=== PATIENT | male | born 1965 | race Caucasian/White ===

== ENCOUNTER → 2021-10-24 | Outpatient (REF) | payer OTHER | LOC: M LAB REF 14:21 | PROVIDERS: ATTEND Physician Assistant | DX: C44.529 Squamous cell carcinoma of skin of other part of trunk (principal) ==

== ENCOUNTER 2024-01-24 06:47 | Day surgery (SDC) | payer OTHER ==
[~2024-01-24] VITALS: Ht 177.8 cm; Wt 97.6 kg
[~2024-01-24 06:47] MED LIST: AMLO1TAB24 PO; LISI10TA22; OLME20TA50 PO; OMEP-173 PO
[2024-01-24] MEDS ORDERED: propofoL 200 MG/20 ML VIAL As Ordered ONE (07:09)
[2024-01-24] MEDS ORDERED: fentaNYL 100 MCG/2 ML INJECTION As Ordered ONE (07:09)
[2024-01-24] MEDS: NS 1,000 ML IV ONE (07:16)
[2024-01-24 08:07] VITALS: TEMP 98
[2024-01-24 08:22] VITALS: BP 119/74; O2SAT 96
== END 2024-01-24 08:31 | disposition home or self-care (01) ==
LOC: M OPP 06:47
PROVIDERS: ATTEND Internal Medicine Gastroenterology
DX: Z12.11 Encounter for screening for malignant neoplasm of colon (principal); K64.0 First degree hemorrhoids; K22.89 Other specified disease of esophagus; R12 Heartburn; Z79.84 Long term (current) use of oral hypoglycemic drugs; Z79.899 Other long term (current) drug therapy
CPT/HCPCS: 43239; 45378; 88305; J3010

== ENCOUNTER 2024-03-03 07:19 | Day surgery (SDC) | payer OTHER ==
[~2024-03-03] VITALS: Ht 175.3 cm; Wt 97.1 kg
[~2024-03-03 07:19] MED LIST changes: +LIDOCAINE 1% SDV 5ML VIAL SC PRN; +LR 1,000 ML IV SCH; +MOME17SP NS
[2024-03-03] MEDS ORDERED: fentaNYL 100 MCG/2 ML INJECTION As Ordered ONE (07:53)
[2024-03-03] MEDS ORDERED: KETOROLAC 60MG 2ML VIAL As Ordered ONE (07:53)
[2024-03-03] MEDS ORDERED: ONDANSETRON 4MG 2ML VIAL As Ordered ONE (07:53)
[2024-03-03] MEDS ORDERED: MIDAZOLAM INJ 2MG/2ML VIAL As Ordered ONE (07:53)
[2024-03-03] MEDS ORDERED: ROCURONIUM BROMIDE 50MG/5ML VIAL As Ordered ONE (07:54)
[2024-03-03] MEDS ORDERED: LIDOCAINE 2% 100MG/5ML SDV (FOR ANES.) As Ordered ONE (07:54)
[2024-03-03] MEDS ORDERED: propofoL 200 MG/20 ML VIAL As Ordered ONE (07:54)
[2024-03-03] MEDS ORDERED: ACETAMINOPHEN 1000MG 100ML IV BAG As Ordered ONE (07:57)
[2024-03-03] MEDS ORDERED: SUGAMMADEX SODIUM 500 MG/5 ML VIAL (BRIDION) As Ordered ONE (07:58)
[2024-03-03] MEDS: ceFAZolin SOD 2 GM in IV 1 EA IV ONE (08:59)
[2024-03-03] MEDS ORDERED: HYDROMORPHONE HCL 0.5 MG/ 0.5 ML SYRINGE IV PRN (09:35)
[2024-03-03] MEDS ORDERED: LR 1,000 ML IV SCH (09:35)
[2024-03-03] MEDS ORDERED: ONDANSETRON 4MG 2ML VIAL IV PRN (09:35)
[2024-03-03] MEDS: fentaNYL 100 MCG/2 ML INJECTION IV PRN (10:10)
[2024-03-03] MEDS: oxyCODONE 5MG TAB PO PRN (10:17)
[2024-03-03 11:00] VITALS: BP 137/88; O2SAT 96
== END 2024-03-03 11:10 | disposition home or self-care (01) ==
LOC: M SDC 07:19
PROVIDERS: ATTEND Surgery
DX: K42.0 Umbilical hernia with obstruction, without gangrene (principal); J30.9 Allergic rhinitis, unspecified; Z88.8 Allergy status to other drugs, medicaments and biological substances; Z79.899 Other long term (current) drug therapy
CPT/HCPCS: 49614; 88302; C9290; J0131; J0665; J0690; J1100; J1885; J2250; J2405; J3010

== ENCOUNTER → 2024-04-17 | Outpatient (CLI) | payer OTHER ==
[~2024-04-17] MED LIST changes: -LIDOCAINE 1% SDV 5ML VIAL SC PRN; -LR 1,000 ML IV SCH
== END ==
LOC: M SLEEP 20:00
PROVIDERS: ATTEND Internal Medicine Critical Care Medicine
DX: G47.30 Sleep apnea, unspecified (principal)

== ENCOUNTER → 2024-07-13 | Outpatient (CLI) | payer OTHER | LOC: M SLEEP 20:00 | PROVIDERS: ATTEND Internal Medicine Critical Care Medicine | DX: G47.33 Obstructive sleep apnea (adult) (pediatric) (principal) ==